=== PATIENT | male | born 1950 | race Caucasian/White ===

== ENCOUNTER 2016-09-20 18:16 | Emergency (ER) | payer OTHER ==
[~2016-09-20] VITALS: Ht 180.3 cm; Wt 129.8 kg
[~2016-09-20 18:16] MED LIST: ATOR20TA PO; BENA25TA8 PO; CALC750C PO; EPIP0.3I IM; FENO1TAB76 PO; MEDR4PAK3 PO; METO25 PO; MULT1TAB46 PO; OMEP10CA37 PO; ST JTAB PO; STINGING NETTLE PO; SYNT200T PO; VITA500015 PO; [UNRECOGNIZED DRUG - CODE] SL
[2016-09-20 18:22] VITALS: BP 137/81; PULSE 44; RESP 20; TEMP 98.3; O2SAT 96
[2016-09-20] MEDS ORDERED: SODIUM CHLORIDE 0.9% FLUSH 5 ML FLUSH IVF PRN (18:45)
[2016-09-20] MEDS ORDERED: EPIN1INJ17 SQ (18:47)
[2016-09-20] MEDS ORDERED: MULTTAB67 PO (18:47)
[2016-09-20] MEDS ORDERED: ATOR20TA15 PO (18:47)
[2016-09-20] MEDS ORDERED: CALC1TAB12 PO (18:47)
[2016-09-20] MEDS ORDERED: BENA25TA3 PO (18:47)
[2016-09-20] MEDS ORDERED: VITA500030 CHEW (18:47)
[2016-09-20] MEDS ORDERED: [UNRECOGNIZED DRUG - CODE] SL (18:47)
[2016-09-20] MEDS ORDERED: LEVO.2 PO (18:47)
--- NOTE | 2016-09-20 18:49 | PD ---
HPI . Irregular heartbeat Chief Complaint: General Weakness Time Seen by Provider: 18:31 Travel History International Travel<30 days: No Contact w/Intl Traveler<30days: No Traveled to known affect area: No History of Present Illness HPI Patient presents stating that he feels like something has been racing in his chest since yesterday. His has been monitoring his heart rate and blood pressure at home and has found his heart rate to be in the 40s and his systolic blood pressure to be in the 80s to 90s. This is very unusual for this patient. She states that she has checked his vital signs today and they have been more normal but he has continued to have the sensation of something racing in his chest. They therefore presented for further evaluation. He denies any other associated symptoms. No chest pain, no shortness of breath, no nausea, no diaphoresis. He has had a previous thyroidectomy and states that his thyroid function was checked just a couple of weeks ago. He denies any previous similar history. PFSH Past Medical History Cardiac Catheterization: Yes (15 yrs ago - clear) Cardiovascular Problems: Yes High Cholesterol: Yes Endocrine: Yes GERD: Yes Immunizations Current: Yes Thyroid Disease: Yes Past Surgical History Cholecystectomy: Yes Endocrine Surgery: Yes (THYROIDECTOMY) Tonsillectomy: Yes Social History Alcohol Use: Yes (VERY RARE) Tobacco Use: No (NEVER) Substance Use: No Allergies-Medications (Allergen,Severity, Reaction): Coded Allergies: Shellfish (Verified Allergy, Severe, swelling and rash, 09/20/16) Vitamin E (Verified Allergy, Intermediate, LIP SWELLING, 09/20/16) Darvon (Verified Allergy, Unknown, 09/20/16) Iodine (Verified Allergy, Unknown, 09/20/16) Reported Meds & Prescriptions Reported Meds & Active Scripts Active Reported Vitamin D3 (Cholecalciferol) 5,000 Unit Chew 5,000 Units CHEW DAILY Vitamin B-12 (Cyanocobalamin) 6,000 Mcg Subl 6,000 Mcg SL Calcium 500 +D (Calcium Carbonate-Cholecalciferol) 500-400 Mg-Unit Tab 1 Tab PO DAILY Synthroid (Levothyroxine Sodium) 200 Mcg Tab 224 Mcg PO DAILY Atorvastatin (Atorvastatin Calcium) 20 Mg Tab 20 Mg PO HS Multiple Vitamin 1 Tab 1 Tab PO DAILY Epinephrine Inj (Epinephrine) 0.3 Mg/0.3 Ml Pfpen 0.3 Mg SQ ONCE PRN Benadryl Allergy (Diphenhydramine HCl) 25 Mg Tab 25 Mg PO Q6H PRN [Stinging Nettle] 450 Mg PO DAILY Review of Systems Except as stated in HPI: all other systems reviewed are Neg HENT: No: Headaches Cardiovascular: Positive: Irregular Rhythm, No: Chest Pain or Discomfort Respiratory: No: Shortness of Breath Gastrointestinal: No: Nausea, Vomiting Physical Exam Narrative GENERAL: Awake and alert and in no acute distress. SKIN: Warm and dry. HEAD: Atraumatic. Normocephalic. EYES: Pupils equal and round. ENT: No nasal bleeding or discharge. Mucous membranes pink and moist. NECK: Trachea midline. Neck supple. CARDIOVASCULAR: He is in a sinus rhythm with multiple PVCs. He is occasionally in a bigeminy rhythm. RESPIRATORY: No accessory muscle use. Lungs are clear with full air movement throughout. GASTROINTESTINAL: Abdomen soft, non-tender, nondistended. MUSCULOSKELETAL: No obvious deformities. No edema. NEUROLOGICAL: Awake and alert. No obvious cranial nerve deficits. Motor grossly within normal limits. Normal speech. PSYCHIATRIC: Appropriate mood and affect; insight and judgment normal. Data Data Last Documented VS Vital Signs Date Time Temp Pulse Resp B/P Pulse Ox O2 Delivery O2 Flow Rate FiO2 09/20/16 20:05 60 18 131/64 94 Room Air 09/20/16 18:22 98.3 Orders Electrocardiogram (09/20/16 18:40) Ckmb (Isoenzyme) Profile (09/20/16 18:40) Complete Blood Count With Diff (09/20/16 18:40) Comprehensive Metabolic Panel (09/20/16 18:40) D-Dimer (09/20/16 18:40) Magnesium (Mg) (09/20/16 18:40) Prothrombin Time / Inr (Pt) (09/20/16 18:40) Act Partial Throm Time (Ptt) (09/20/16 18:40) Troponin I (09/20/16 18:40) Chest, Single Ap (09/20/16 18:40) Ecg Monitoring (09/20/16 18:40) Iv Access Insert/Monitor (09/20/16 18:40) Oximetry (09/20/16 18:40) Sodium Chloride 0.9% Flush (Ns Flush) (09/20/16 18:45) Thyroid Stimulating Hormone (09/20/16 18:40) Free Thyroxine (T4) (09/20/16 18:40) B-Type Natriuretic Peptide (09/20/16 19:32) CKMB (09/20/16 19:05) CKMB% (09/20/16 19:05) Labs Laboratory Tests Test 09/20/16 09/20/16 19:05 19:55 White Blood Count 6.4 TH/MM3 Red Blood Count 4.58 MIL/MM3 Hemoglobin 14.0 GM/DL Hematocrit 39.8 % Mean Corpuscular Volume 87.0 FL Mean Corpuscular Hemoglobin 30.6 PG Mean Corpuscular Hemoglobin 35.2 % Concent Red Cell Distribution Width 13.1 % Platelet Count 141 TH/MM3 Mean Platelet Volume 9.9 FL Neutrophils (%) (Auto) 55.9 % Lymphocytes (%) (Auto) 33.4 % Monocytes (%) (Auto) 7.2 % Eosinophils (%) (Auto) 2.9 % Basophils (%) (Auto) 0.6 % Neutrophils # (Auto) 3.6 TH/MM3 Lymphocytes # (Auto) 2.1 TH/MM3 Monocytes # (Auto) 0.5 TH/MM3 Eosinophils # (Auto) 0.2 TH/MM3 Basophils # (Auto) 0.0 TH/MM3 CBC Comment DIFF FINAL Differential Comment Prothrombin Time 11.6 SEC Prothromb Time International 1.0 RATIO Ratio Activated Partial 25.6 SEC Thromboplast Time D-Dimer Quantitative (PE/DVT) 0.25 MG/L FEU Sodium Level 143 MEQ/L Potassium Level 3.6 MEQ/L Chloride Level 108 MEQ/L Carbon Dioxide Level 24.9 MEQ/L Anion Gap 10 MEQ/L Blood Urea Nitrogen 12 MG/DL Creatinine 1.00 MG/DL Estimat Glomerular Filtration 75 ML/MIN Rate Random Glucose 148 MG/DL Calcium Level 8.2 MG/DL Magnesium Level 1.8 MG/DL Total Bilirubin 1.9 MG/DL Aspartate Amino Transf 17 U/L (AST/SGOT) Alanine Aminotransferase 30 U/L (ALT/SGPT) Alkaline Phosphatase 75 U/L Total Creatine Kinase 253 U/L Creatine Kinase MB 2.8 NG/ML Troponin I LESS THAN 0.02 NG/ML Total Protein 6.3 GM/DL Albumin 3.5 GM/DL Thyroid Stimulating Hormone 0.256 uIU/ML 3rd Gen B-Type Natriuretic Peptide 257 PG/ML [facility] Medical Decision Making Medical Screen Exam Complete: Yes Emergency Medical Condition: Yes Medical Record Reviewed: Yes (medical history is significant for hyperlipidemia , thyroidectomy, cholecystectomy. He had a normal cardiac catheterization in March 2016.) Interpretation(s) EKG shows a sinus rhythm with frequent PVCs. He is in a bigeminy rhythm on this EKG. No ST segment elevation or depression. Differential Diagnosis Differential diagnosis of palpitations includes but is not limited to anxiety, SVT, aVF with RVR, VT, sinus tachycardia Narrative Course Patient presents for the evaluation of a rushing sensation in his chest. He does have a bigeminy rhythm. Last Impressions Chest X-Ray 09/20/16 1840 Signed Impressions: Service Date/Time: Tuesday, September 20, 2016 18:52 - CONCLUSION: Cardiomegaly and slight interstitial prominence. Trenton Lee MD The chest x-ray was independently reviewed by me. I have added a BNP to his lab workup. CBC & BMP Diagram 09/20/16 19:05 D-dimer is normal. Cardiac enzymes are negative. TSH is low at 0.256. BNP is 257. The patient has continued to have multiple PVCs. They had been unifocal here. He has often been in bigeminy. The patient does not desire admission. He would prefer to follow up with his body bumper as an outpatient. I think that that is probably a reasonable decision. Diagnosis Primary Impression: Bigeminy Referrals: Doe Vee MD call for appointment Patient Instructions: General Instructions, Premature Ventricular Contractions (ED) Disposition: 01 DISCHARGE HOME Condition: Stable Funmilayo Israel MD Sep 20, 2016 18:49
--- NOTE | 2016-09-20 19:00 | RADHPO ---
EXAM DATE/TIME: 09/20/2016 18:52 [facility] COMPARISON: CHEST SINGLE AP, April 11, 2016, 13:56. INDICATIONS : Palpitations MEDICAL HISTORY : None. SURGICAL HISTORY : None. ENCOUNTER: Initial ACUITY: 2 days PAIN SCORE: 0/10 LOCATION: Bilateral chest FINDINGS: A single view of the chest demonstrates the lungs to be symmetrically aerated without evidence of mas s, infiltrate or effusion. Cardiomegaly and tortuous thoracic aorta. Slight interstitial prominence. No pulmonary edema. The cardiomediastinal contours are unremarkable. Osseous structures are intact. CONCLUSION: Cardiomegaly and slight interstitial prominence. Trenton Lee MD on September 20, 2016 at 18:58 Board Certified Radiologist. This report was verified electronically.
[2016-09-20 19:05] VITALS: BP 135/72; PULSE 66; RESP 18; O2SAT 95
[2016-09-20 19:37] LABS: AUTOMATED NEUTROPHIL # 3.6 TH/MM3 (1.8-7.7); BASOPHIL % 0.6 % (0.0-2.0); EOSINOPHIL # 0.2 TH/MM3 (0-0.4); EOSINOPHIL % 2.9 % (0.0-4.0); HEMATOCRIT 39.8 % (39.0-51.0); HEMO FLAGS DIFF FINAL; LYMPH % 33.4 % (9.0-44.0); LYMPHOCYTE # 2.1 TH/MM3 (1.0-4.8); MEAN CORPUSCULAR HEMOGLOBIN 30.6 PG (27.0-34.0); MEAN CORPUSCULAR HGB CONC 35.2 % (32.0-36.0); MONO % 7.2 % (0.0-8.0); NEUT % 55.9 % (16.0-70.0); PLATELET COUNT 141 TH/MM3 (150-450); RED BLOOD COUNT 4.58 MIL/MM3 (4.50-5.90); RED CELL DISTRIBUTION WIDTH 13.1 % (11.6-17.2); WHITE BLOOD COUNT 6.4 TH/MM3 (4.0-11.0)
[2016-09-20 19:50] LABS: CHLORIDE 108 MEQ/L (98-107); POTASSIUM 3.6 MEQ/L (3.5-5.1); SODIUM (NA) 143 MEQ/L (136-145)
[2016-09-20 19:54] LABS: ANION GAP 10 MEQ/L (5-15); BICARBONATE 24.9 MEQ/L (21.0-32.0); BLOOD UREA NITROGEN 12 MG/DL (7-18); MAGNESIUM 1.8 MG/DL (1.5-2.5)
[2016-09-20 19:57] LABS: ALT (GPT) 30 U/L (12-78); AST (GOT) 17 U/L (15-37); GLOMERULAR FILTRATION RATE 75 ML/MIN (>89)
[2016-09-20 19:59] LABS: TOTAL BILIRUBIN ADULT 1.9 MG/DL (0.2-1.0)
[2016-09-20 20:00] LABS: ALKALINE PHOSPHATASE 75 U/L (45-117); CREATINE KINASE 253 U/L (39-308)
[2016-09-20 20:05] VITALS: BP 131/64; PULSE 60; RESP 18; O2SAT 94
[2016-09-20 20:12] LABS: CKMB 2.8 NG/ML (0.5-3.6)
[2016-09-20 20:19] LABS: APTT (PATIENT) 25.6 SEC (24.3-30.1); PROTHROMBIN TIME - PATIENT 11.6 SEC (9.8-11.6)
[2016-09-20 21:05] VITALS: BP 136/69; PULSE 66; RESP 18; O2SAT 96
[2016-09-20 21:31] LABS: FREE T4 1.06 NG/DL (0.76-1.46)
--- NOTE | 2016-09-21 12:21 | EKG ---
Date Performed: 09/20/2016 Time Performed: 18:45:36 PTAGE: 66 years EKG: Sinus rhythm with bigeminal PVCs Leftward axis Inferior/lateral ST-T changes are nonspecific Compared to the prev ious tracing frequent PVCs and nonspecific T wave changes are now present Abnormal ECG PREVIOUS TRACING : 04/11/2016 19.52 DOCTOR: Von Barrett Interpretating Date/Time 09/21/2016 12:19:53
== END 2016-09-20 21:34 | disposition home or self-care (01) ==
LOC: PHED 18:16
DX: R00.8 Other abnormalities of heart beat (principal); I49.3 Ventricular premature depolarization
CPT/HCPCS: 71010; 80053; 82550; 82552; 83735; 83880; 84439; 84443; 84484; 85025; 85379; 85610; 85730; 93005

== ENCOUNTER 2016-09-23 21:30 | Emergency (ER) | payer OTHER ==
[~2016-09-23] VITALS: Ht 154.9 cm; Wt 128.0 kg
[~2016-09-23 21:30] MED LIST changes: -ATOR20TA PO; +ATOR20TA15 PO; +BENA25TA3 PO; -BENA25TA8 PO; +CALC1TAB12 PO; -CALC750C PO; +EPIN1INJ17 SQ; -EPIP0.3I IM; -FENO1TAB76 PO; +LEVO.2 PO; -MEDR4PAK3 PO; -METO25 PO; -MULT1TAB46 PO; +MULTTAB67 PO; -OMEP10CA37 PO; -ST JTAB PO; -SYNT200T PO; -VITA500015 PO; +VITA500030 CHEW
[2016-09-23 21:54] VITALS: BP 122/75; PULSE 85; RESP 18; TEMP 98.8; O2SAT 95
[2016-09-23] MEDS ORDERED: SODIUM CHLOR 0.9% 1000 ML INJ 1,000 ML IV SCH (22:06)
--- NOTE | 2016-09-23 22:12 | PD ---
HPI Chief Complaint: Flank/Kidney Pain Time Seen by Provider: 22:00 Travel History International Travel<30 days: No Contact w/Intl Traveler<30days: No Traveled to known affect area: No History of Present Illness HPI The patient is a 66-year-old male who presents to the emergency department for left flank pain of 5 hours duration. The patient has complained of pain located over the left lateral aspect of the abdomen for last 5 hours. The patient denies any nausea, vomiting, or change in bowel habits. The patient does have a history of daily diarrhea, denies any recent constipation. The patient denies any hematuria, dysuria, frequency, or urgency. The patient states he is currently being worked up for cardiac-related issues, but denies any acute chest pain or shortness of breath. The patient does have a history of diverticulitis, however, denies any history of nephrolithiasis. The patient does note a previous history of laparoscopic cholecystectomy. The patient's primary physician is Dr. Vallecillo. The patient denies any fever, chills, or sweats. PFSH Past Medical History Cardiac Catheterization: Yes (15 yrs ago - clear) Cardiovascular Problems: Yes High Cholesterol: Yes Endocrine: Yes Gastrointestinal Disorders: Yes (barretts esophagus) GERD: Yes Immunizations Current: Yes Thyroid Disease: Yes Past Surgical History Cholecystectomy: Yes Endocrine Surgery: Yes (THYROIDECTOMY) Tonsillectomy: Yes Other Surgery: Yes (thyroidectomy ) Social History Alcohol Use: Yes (VERY RARE) Tobacco Use: No (NEVER) Substance Use: No Allergies-Medications (Allergen,Severity, Reaction): Coded Allergies: Shellfish (Verified Allergy, Severe, swelling and rash, 09/23/16) Vitamin E (Verified Allergy, Intermediate, LIP SWELLING, 09/23/16) Darvon (Verified Allergy, Unknown, 09/23/16) Iodine (Verified Allergy, Unknown, 09/23/16) Reported Meds & Prescriptions Reported Meds & Active Scripts Active Hutto (Hydrocodone-Acetaminophen) 5-325 mg Tab 1 Tab PO Q6H PRN Flagyl (Metronidazole) 500 Mg Tab 500 Mg PO BID 7 Days Cipro (Ciprofloxacin HCl) 500 Mg Tab 500 Mg PO BID 7 Days Reported Vitamin D3 (Cholecalciferol) 5,000 Unit Chew 5,000 Units CHEW DAILY Vitamin B-12 (Cyanocobalamin) 6,000 Mcg Subl 6,000 Mcg SL Calcium 500 +D (Calcium Carbonate-Cholecalciferol) 500-400 Mg-Unit Tab 1 Tab PO DAILY Synthroid (Levothyroxine Sodium) 200 Mcg Tab 224 Mcg PO DAILY Atorvastatin (Atorvastatin Calcium) 20 Mg Tab 20 Mg PO HS Multiple Vitamin 1 Tab 1 Tab PO DAILY Epinephrine Inj (Epinephrine) 0.3 Mg/0.3 Ml Pfpen 0.3 Mg SQ ONCE PRN Benadryl Allergy (Diphenhydramine HCl) 25 Mg Tab 25 Mg PO Q6H PRN [Stinging Nettle] 450 Mg PO DAILY Review of Systems Except as stated in HPI: all other systems reviewed are Neg General / Constitutional: No: Fever Cardiovascular: No: Chest Pain or Discomfort Respiratory: No: Shortness of Breath Gastrointestinal: Positive: Diarrhea (chronic, daily diarrhea for years, no changes), Abdominal Pain, No: Nausea, Vomiting, Constipation, Changes in Bowel Habits, Loss of Appetite Genitourinary: No: Urgency, Frequency, Dysuria, Hematuria Musculoskeletal: No: Myalgias, Arthralgias Physical Exam Narrative GENERAL: Awake, alert, pleasant 66-year-old male who appears his stated age and is in no acute respiratory distress. SKIN: Warm and dry. HEAD: Atraumatic. Normocephalic. EYES: No scleral icterus. No injection or drainage. ENT: No nasal bleeding or discharge. Mucous membranes pink and moist. NECK: Trachea midline. No JVD. Well-healed transverse surgical scar. CARDIOVASCULAR: Regular rate and rhythm. No murmur appreciated. RESPIRATORY: No accessory muscle use. Clear to auscultation. Breath sounds equal bilaterally. GASTROINTESTINAL: Abdomen soft, obese, well-healed laparoscopic scars. Tenderness in the mid left abdomen. No rebound tenderness, guarding, or rigidity. Back: No CVA tenderness. MUSCULOSKELETAL: No obvious deformities. No clubbing. No cyanosis. No edema. NEUROLOGICAL: Awake and alert. No obvious cranial nerve deficits. Motor grossly within normal limits. Normal speech. PSYCHIATRIC: Appropriate mood and affect; insight and judgment normal. Data Data Last Documented VS Vital Signs Date Time Temp Pulse Resp B/P Pulse Ox O2 Delivery O2 Flow Rate FiO2 09/23/16 21:54 98.8 85 18 122/75 95 Orders Complete Blood Count With Diff (09/23/16 22:06) Comprehensive Metabolic Panel (09/23/16 22:06) Lipase (09/23/16 22:06) Urinalysis - C+S If Indicated (09/23/16 22:06) Ct Abd/Pel W/O Iv Contrast (09/23/16 22:06) Iv Access Insert/Monitor (09/23/16 22:06) Ecg Monitoring (09/23/16 22:06) Oximetry (09/23/16 22:06) Sodium Chlor 0.9% 1000 Ml Inj (Ns 1000 M (09/23/16 22:06) Sodium Chloride 0.9% Flush (Ns Flush) (09/23/16 22:15) Metronidazole 500 Mg Inj (Flagyl 500 Mg (09/23/16 23:00) Ciprofloxacin (Cipro) (09/23/16 23:00) Labs Laboratory Tests Test 09/23/16 09/23/16 22:00 22:25 Urine Color YELLOW Urine Turbidity CLEAR Urine pH 6.0 Urine Specific Bart[place] 1.012 Urine Protein NEG mg/dL Urine Glucose (UA) NEG mg/dL Urine Ketones NEG mg/dL Urine Occult Blood NEG Urine Nitrite NEG Urine Bilirubin NEG Urine Leukocyte Esterase NEG Urine RBC 0-2 /hpf Urine WBC 0-2 /hpf Urine Squamous Epithelial 0-5 /hpf Cells Urine Bacteria NONE /hpf Microscopic Urinalysis Comment CULT NOT INDICATED White Blood Count 9.8 TH/MM3 Red Blood Count 4.70 MIL/MM3 Hemoglobin 13.9 GM/DL Hematocrit 40.6 % Mean Corpuscular Volume 86.4 FL Mean Corpuscular Hemoglobin 29.7 PG Mean Corpuscular Hemoglobin 34.3 % Concent Red Cell Distribution Width 13.4 % Platelet Count 150 TH/MM3 Mean Platelet Volume 9.8 FL Neutrophils (%) (Auto) 67.3 % Lymphocytes (%) (Auto) 23.2 % Monocytes (%) (Auto) 7.0 % Eosinophils (%) (Auto) 1.8 % Basophils (%) (Auto) 0.7 % Neutrophils # (Auto) 6.4 TH/MM3 Lymphocytes # (Auto) 2.3 TH/MM3 Monocytes # (Auto) 0.7 TH/MM3 Eosinophils # (Auto) 0.2 TH/MM3 Basophils # (Auto) 0.1 TH/MM3 CBC Comment DIFF FINAL Differential Comment Sodium Level 142 MEQ/L Potassium Level 3.8 MEQ/L Chloride Level 106 MEQ/L Carbon Dioxide Level 24.7 MEQ/L Anion Gap 11 MEQ/L Blood Urea Nitrogen 13 MG/DL Creatinine 0.95 MG/DL Estimat Glomerular Filtration 80 ML/MIN Rate Random Glucose 89 MG/DL Calcium Level 8.5 MG/DL Aspartate Amino Transf 20 U/L (AST/SGOT) Alanine Aminotransferase 28 U/L (ALT/SGPT) Albumin 3.7 GM/DL Lipase 121 U/L MDM Medical Decision Making Medical Screen Exam Complete: Yes Emergency Medical Condition: Yes Medical Record Reviewed: Yes Interpretation(s) Last Impressions Abdomen/Pelvis CT 09/23/162205 Signed Impressions: Service Date/Time: Friday, September 23, 2016 22:13 - CONCLUSION: Acute diverticulitis in the distal descending colon. No evidence of extraintestinal abscess or significant ileus. Otherwise unremarkable evaluation of the abdomen. Status post cholecystectomy. Louie Bowens MD Laboratory Tests Test 09/23/16 09/23/16 22:00 22:25 Urine Color YELLOW Urine Turbidity CLEAR Urine pH 6.0 Urine Specific Bartley 1.012 Urine Protein NEG mg/dL Urine Glucose (UA) NEG mg/dL Urine Ketones NEG mg/dL Urine Occult Blood NEG Urine Nitrite NEG Urine Bilirubin NEG Urine Leukocyte Esterase NEG Urine RBC 0-2 /hpf Urine WBC 0-2 /hpf Urine Squamous Epithelial 0-5 /hpf Cells Urine Bacteria NONE /hpf Microscopic Urinalysis Comment CULT NOT INDICATED White Blood Count 9.8 TH/MM3 Red Blood Count 4.70 MIL/MM3 Hemoglobin 13.9 GM/DL Hematocrit 40.6 % Mean Corpuscular Volume 86.4 FL Mean Corpuscular Hemoglobin 29.7 PG Mean Corpuscular Hemoglobin 34.3 % Concent Red Cell Distribution Width 13.4 % Platelet Count 150 TH/MM3 Mean Platelet Volume 9.8 FL Neutrophils (%) (Auto) 67.3 % Lymphocytes (%) (Auto) 23.2 % Monocytes (%) (Auto) 7.0 % Eosinophils (%) (Auto) 1.8 % Basophils (%) (Auto) 0.7 % Neutrophils # (Auto) 6.4 TH/MM3 Lymphocytes # (Auto) 2.3 TH/MM3 Monocytes # (Auto) 0.7 TH/MM3 Eosinophils # (Auto) 0.2 TH/MM3 Basophils # (Auto) 0.1 TH/MM3 CBC Comment DIFF FINAL Differential Comment Sodium Level 142 MEQ/L Potassium Level 3.8 MEQ/L Chloride Level 106 MEQ/L Carbon Dioxide Level 24.7 MEQ/L Anion Gap 11 MEQ/L Blood Urea Nitrogen 13 MG/DL Creatinine 0.95 MG/DL Estimat Glomerular Filtration 80 ML/MIN Rate Random Glucose 89 MG/DL Calcium Level 8.5 MG/DL Aspartate Amino Transf 20 U/L (AST/SGOT) Alanine Aminotransferase 28 U/L (ALT/SGPT) Albumin 3.7 GM/DL Lipase 121 U/L Differential Diagnosis Differential diagnosis includes diverticulitis, colitis, nephrolithiasis, hydronephrosis, pyelonephritis, lower lobe pneumonia, pancreatitis, partial small bowel obstruction. Narrative Course IV was established, labs were drawn and sent, and the patient was placed on cardiac telemetry monitoring and continuous pulse oximetry monitoring. The patient declined pain medications. UA was sent to lab. Noncontrast CT of the abdomen and pelvis was ordered to evaluate for diverticulitis. The patient's white count is unremarkable. UA is negative. CT of the abdomen and pelvis is positive for acute diverticulitis in the distal descending colon, consistent with the location of the patient's pain. The patient was administered Flagyl intravenously and Cipro orally. The patient will be discharged home on Cipro, Flagyl, and pain medications. The patient is advised to follow-up with his primary physician. The patient will be provided a copy of his labs and CT results at discharge. Diagnosis Primary Impression: Acute diverticulitis Patient Instructions: General Instructions Additional Instructions: Please provide the patient a copy of his labs and CT results at discharge. Follow-up with your primary physician. Return if symptoms worsen or progress. Medications as directed. Med/Other Pt SpecificInfo: Prescription(s) given Scripts Hydrocodone-Acetaminophen (Hutto)5-325 mg Tab1 Tab PO Q6H PRN (PAIN) #20 TAB Ref 0 Prov:Hiram Angel MD 09/23/16 Metronidazole (Flagyl)500 Mg [id number] Mg PO BID 7 Days Ref 0 Prov:Hiram Angel MD 09/23/16 Ciprofloxacin (Cipro)500 Mg [id number] Mg PO BID 7 Days Ref 0 Prov:Hiram Angel MD 09/23/16 Disposition: DISCHARGE HOME Condition: Stable Hiram Angel MD Sep 23, 2016 22:12
[2016-09-23] MEDS ORDERED: SODIUM CHLORIDE 0.9% FLUSH 5 ML FLUSH IVF PRN (22:15)
[2016-09-23 22:19] LABS: BLOOD, URINE NEG (NEG); GLUCOSE,URINE NEG (NEG); KETONE, URINE NEG (NEG); NITRITE,URINE NEG (NEG)
[2016-09-23 22:25] LABS: RBC, URINE 0-2 /hpf (0-3); SQUAMOUS EPITHELIAL CELL URINE 0-5 /hpf (0-5); URINE COLOR YELLOW (YELLW/STRAW); WBC, URINE 0-2 /hpf (0-5)
[2016-09-23 22:26] LABS: COMMENT (UR) CULT NOT INDICATED; CULTURE IF INDICATED CULT NOT INDICATED
[2016-09-23 22:44] LABS: AUTOMATED NEUTROPHIL # 6.4 TH/MM3 (1.8-7.7); BASOPHIL # 0.1 TH/MM3 (0-0.2); BASOPHIL % 0.7 % (0.0-2.0); EOSINOPHIL # 0.2 TH/MM3 (0-0.4); EOSINOPHIL % 1.8 % (0.0-4.0); HEMATOCRIT 40.6 % (39.0-51.0); HEMO FLAGS DIFF FINAL; LYMPH % 23.2 % (9.0-44.0); LYMPHOCYTE # 2.3 TH/MM3 (1.0-4.8); MEAN CELL VOLUME 86.4 FL (80.0-100.0); MEAN CORPUSCULAR HEMOGLOBIN 29.7 PG (27.0-34.0); MEAN CORPUSCULAR HGB CONC 34.3 % (32.0-36.0); NEUT % 67.3 % (16.0-70.0); PLATELET COUNT 150 TH/MM3 (150-450); RED CELL DISTRIBUTION WIDTH 13.4 % (11.6-17.2); WHITE BLOOD COUNT 9.8 TH/MM3 (4.0-11.0)
--- NOTE | 2016-09-23 22:50 | RADHPO ---
EXAM DATE/TIME: 09/23/2016 22:13 [facility] COMPARISON: No previous studies available for comparison. INDICATIONS : Left lower quadrant pain today. ORAL CONTRAST: No oral contrast ingested. RADIATION DOSE: 24.81 CTDIvol (mGy) MEDICAL HISTORY : Gastroesophageal reflux disease. Cardiovascular disease Diverticulitis. SURGICAL HISTORY : Cholecystectomy. ENCOUNTER: Initial ACUITY: 1 day PAIN SCALE: 5/10 LOCATION: Left lower quadrant abdomen TECHNIQUE: Volumetric scanning of the abdomen and pelvis was performed. Using automated exposure control and ad justment of the mA and/or kV according to patient size, radiation dose was kept as low as reasonably achievable to obtain optimal diagnostic quality images. FINDINGS: LOWER LUNGS: The visualized lower lungs are clear. LIVER: Homogeneous density without lesion. There is no dilation of the biliary tree. Post cholecystectomy c lips are noted. SPLEEN: Normal size without lesion. PANCREAS: Within normal limits. KIDNEYS: Normal in size and shape. There is no mass, stone, or hydronephrosis. ADRENAL GLANDS: Within normal limits. VASCULAR: There is no aortic aneurysm. BOWEL/MESENTERY: Multiple diverticular scattered throughout the colon. Pericolonic infiltration is identified along th e distal descending colon. There are no abnormal fluid collections. Intestinal tract is otherwise unr emarkable. ABDOMINAL WALL: Within normal limits. RETROPERITONEUM: There is no lymphadenopathy. BLADDER: No wall thickening or mass. REPRODUCTIVE: Within normal limits. INGUINAL: There is no lymphadenopathy or hernia. MUSCULOSKELETAL: Within normal limits for patient age. CONCLUSION: Acute diverticulitis in the distal descending colon. No evidence of extraintestinal abscess or significant ileus. Otherwise unremarkable evaluation of the abdomen. Status post cholecystectomy. Louie Bowens MD on September 23, 2016 at 22:45 Board Certified Radiologist. This report was verified electronically.
[2016-09-23 22:52] LABS: CHLORIDE 106 MEQ/L (98-107); POTASSIUM 3.8 MEQ/L (3.5-5.1); SODIUM (NA) 142 MEQ/L (136-145)
[2016-09-23 22:56] LABS: ANION GAP 11 MEQ/L (5-15); BICARBONATE 24.7 MEQ/L (21.0-32.0); BLOOD UREA NITROGEN 13 MG/DL (7-18)
[2016-09-23 22:58] LABS: ALT (GPT) 28 U/L (12-78); AST (GOT) 20 U/L (15-37)
[2016-09-23] MEDS ORDERED: NORC5TAB PO (22:58)
[2016-09-23] MEDS ORDERED: METR-1 PO (22:58)
[2016-09-23] MEDS ORDERED: CIPR-9 PO (22:58)
[2016-09-23 22:59] LABS: GLOMERULAR FILTRATION RATE 80 ML/MIN (>89)
[2016-09-23 23:00] LABS: TOTAL BILIRUBIN ADULT 2.7 MG/DL (0.2-1.0)
[2016-09-23] MEDS ORDERED: CIPROFLOXACIN 500 MG TAB PO ONE (23:00)
[2016-09-23] MEDS ORDERED: metroNIDAZOLE 500 MG INJ 100 ML IV ONE (23:00)
[2016-09-23 23:01] LABS: ALKALINE PHOSPHATASE 74 U/L (45-117)
[2016-09-24 00:03] VITALS: BP 131/86; PULSE 82; O2SAT 95
== END 2016-09-24 00:24 | disposition home or self-care (01) ==
LOC: PHED 21:30
DX: K57.32 Diverticulitis of large intestine without perforation or abscess without bleeding (principal); E07.9 Disorder of thyroid, unspecified; E78.00 Pure hypercholesterolemia, unspecified; Z86.79 Personal history of other diseases of the circulatory system; Z87.19 Personal history of other diseases of the digestive system
CPT/HCPCS: 74176; 80053; 81001; 83690; 85025; 96361; 96365; 99284; J7030

== ENCOUNTER 2017-03-05 15:52 | Emergency (ER) | payer MEDICARE, OTHER ==
[~2017-03-05 15:52] MED LIST changes: +CIPR-9 PO; +METR-1 PO; +NORC5TAB PO
[2017-03-05 16:03] VITALS: BP 152/85; PULSE 90; RESP 20; TEMP 98; O2SAT 95
[2017-03-05] MEDS ORDERED: PRIL20TA2 (16:08)
[2017-03-05] MEDS ORDERED: methylPREDNISolone SOD SUCC 125 MG/2 ML VIAL IV PUSH ONE (16:15)
[2017-03-05] MEDS ORDERED: FAMOTIDINE 20 MG/2 ML VIAL IV PUSH ONE (16:15)
--- NOTE | 2017-03-05 16:28 | PD ---
HPI Chief Complaint: Allergic/Adverse Reaction Time Seen by Provider: 16:02 Travel History International Travel<30 days: No Contact w/Intl Traveler<30days: No Traveled to known affect area: No History of Present Illness HPI This is a 66-year-old male who presents to the emergency department with an allergic reaction. He is allergic to shrimp. He was eating at the [employer] he started to feel scratchiness in his throat, constant, moderate severity, progressing to some scratchiness on his face. He denies any wheezing or trouble breathing. He denies any rash. He denies any vomiting, diarrhea or abdominal pain. He doesn't feel lightheaded or dizzy. He took 15 mL of children's Benadryl and took 1 tablet of Benadryl at home. He did not take epinephrine. PFSH Past Medical History Arthritis: Yes Cancer: Yes (SKIN ) Cardiac Catheterization: Yes (2015) Cardiovascular Problems: Yes High Cholesterol: Yes Diverticulitis: Yes Endocrine: Yes Gastrointestinal Disorders: Yes (barretts esophagus) GERD: Yes Kidney Stones: Yes Immunizations Current: Yes Pneumonia: Yes Shingles: Yes Thyroid Disease: Yes Past Surgical History Cholecystectomy: Yes Endocrine Surgery: Yes (THYROIDECTOMY) Genitourinary Surgery: Yes (LITHOTRIPSY) Joint Replacement: Yes (BILATERAL KNEES) Tonsillectomy: Yes Other Surgery: Yes (thyroidectomy ) Social History Alcohol Use: No Tobacco Use: No (NEVER) Substance Use: No Allergies-Medications (Allergen,Severity, Reaction): Coded Allergies: Shellfish (Verified Allergy, Severe, swelling and rash, 03/05/17) Vitamin E (Verified Allergy, Intermediate, LIP SWELLING, 03/05/17) Darvon (Verified Allergy, Unknown, 03/05/17) Iodine (Verified Allergy, Unknown, 03/05/17) Reported Meds & Prescriptions Reported Meds & Active Scripts Active Reported Prilosec (Omeprazole Magnesium) 20 Mg Tab Calcium 500 +D (Calcium Carbonate-Cholecalciferol) 500-400 Mg-Unit Tab 1 Tab PO DAILY Synthroid (Levothyroxine Sodium) 200 Mcg Tab 224 Mcg PO DAILY Atorvastatin (Atorvastatin Calcium) 20 Mg Tab 20 Mg PO HS Epinephrine Inj (Epinephrine) 0.3 Mg/0.3 Ml Pfpen 0.3 Mg SQ ONCE PRN Review of Systems Except as stated in HPI: all other systems reviewed are Neg Physical Exam Narrative GENERAL:Well appearing, no acute distress SKIN: Focused skin assessment warm and dry. HEAD: Atraumatic. Normocephalic. EYES: Pupils equal and round. No injection or drainage. ENT: Moist mucous membranes NECK: Trachea midline. CARDIOVASCULAR: Regular rate and rhythm. No murmur appreciated. RESPIRATORY: Clear to auscultation. Breath sounds equal bilaterally. GASTROINTESTINAL: Abdomen soft, non-tender, nondistended. MUSCULOSKELETAL: No obvious deformities. NEUROLOGICAL: Awake and alert. No obvious cranial nerve deficits. Moving all extremities. PSYCHIATRIC: Appropriate mood and affect; insight and judgment normal. Data Data Last Documented VS Vital Signs Date Time Temp Pulse Resp B/P Pulse Ox O2 Delivery O2 Flow Rate FiO2 03/05/17 16:03 98.0 90 20 152/85 95 Orders Methylprednisolone So Succ Inj (Solumedr (03/05/17 16:15) Famotidine Inj (Pepcid Inj) (03/05/17 16:15) [facility] Medical Decision Making Medical Screen Exam Complete: Yes Emergency Medical Condition: Yes Interpretation(s) Afebrile, no tachycardia, hypertensive Differential Diagnosis Acute allergic reaction, anaphylaxis, contact dermatitis, angioedema Narrative Course This is a 66-year-old male who presents to the emergency department with itching in his throat after eating at [employer]. He has a known shellfish allergy. He thinks that his food might of been mixed with shellfish. On arrival he is placed on a monitor and an IV was established. Taken Benadryl prior to coming. He was given Salumedrol, IV fluids and famotidine. He feels much better, his symptoms have resolved and he wants to go home. He'll be discharged with prednisone and Benadryl. Diagnosis Primary Impression: Acute allergic reaction Qualified Code: T78.40XA - Acute allergic reaction, initial encounter Patient Instructions: General Instructions Additional Instructions: If you develop swelling of the throat or coughing a lot, wheezing or trouble breathing, throwing up or having diarrhea, feeling dizzy or passing out, or spreading of your rash return to the emergency room immediately as you may be having a life threatening allergic reaction. Complete your course of steroids and take benadryl every 4 hours for the next 48 hours and then as needed for itching or other symptoms. Med/Other Pt SpecificInfo: Prescription(s) given Scripts Diphenhydramine HCl (Benadryl Allergy)25 Mg Tablet1 Tab PO Q6HR PRN (ITCHING) # 14 Prov:Tricia Hallman MD 03/05/17 Prednisone 20 Mg Tab40 Mg PO DAILY 4 Days Prov:Tricia Hallman MD 03/05/17 Disposition: 01 DISCHARGE HOME Condition: Stable Tricia Hallman MD Mar 05, 2017 16:28
[2017-03-05] MEDS ORDERED: BENA25TA6 PO (18:29)
[2017-03-05] MEDS ORDERED: PRED20 PO (18:29)
[2017-03-06] MEDS ORDERED: MEDR4PAK PO (11:35)
[2017-03-06] MEDS ORDERED: ZANT150T2 PO (11:35)
== END 2017-03-05 18:55 | disposition home or self-care (01) ==
LOC: PHED 15:52
DX: T78.40XA Allergy, unspecified, initial encounter (principal)
CPT/HCPCS: 96374; 96375; 99284; J2930

== ENCOUNTER 2017-03-06 09:09 | Emergency (ER) | payer MEDICARE, OTHER ==
[~2017-03-06] VITALS: Ht 180.3 cm; Wt 132.7 kg
[~2017-03-06 09:09] MED LIST changes: +BENA25TA6 PO; +PRED20 PO; +PRIL20TA2
[2017-03-06 09:11] VITALS: BP 165/82; PULSE 92; RESP 18; TEMP 98.1; O2SAT 96
[2017-03-06] MEDS ORDERED: diphenhydrAMINE HCL 50 MG/ML VIAL IVP ONE (09:45)
[2017-03-06] MEDS ORDERED: SODIUM CHLORIDE 0.9% FLUSH 10 ML FLUSH IV FLUSH PRN (09:45)
[2017-03-06] MEDS ORDERED: FAMOTIDINE 20 MG/2 ML VIAL IV PUSH ONE (09:45)
[2017-03-06] MEDS ORDERED: EPINEPHrine HCL (1:1000) 1 MG/ML VIAL IM ONE (09:45)
[2017-03-06] MEDS ORDERED: methylPREDNISolone SOD SUCC 125 MG/2 ML VIAL IV PUSH ONE (09:45)
--- NOTE | 2017-03-06 09:52 | PD ---
HPI Chief Complaint: Allergic/Adverse Reaction Time Seen by Provider: 09:40 Travel History International Travel<30 days: No Contact w/Intl Traveler<30days: No Traveled to known affect area: No History of Present Illness HPI 66-year-old male with history of shellfish allergies, seen yesterday for allergic reaction to possible shellfish at a restaurant, given prednisone and Benadryl, presents to the ER today because he states that he started feeling itchiness going down his face and into his throat again despite taking Benadryl and prednisone at 8 AM this morning. He states it is still progressing. He denies any shortness of breath, drooling, rash, or any other issues. Modifying Factors: None Associated Signs & Symptoms: Facial itching, redness, throat irritation, allergic reaction Risk Factors: Allergic reaction yesterday to shellfish, took medications at 8 AM PFSH Past Medical History Arthritis: Yes Cancer: Yes (SKIN ) Cardiac Catheterization: Yes (2015) Cardiovascular Problems: Yes High Cholesterol: Yes Diverticulitis: Yes Endocrine: Yes Gastrointestinal Disorders: Yes (barretts esophagus) GERD: Yes Kidney Stones: Yes Immunizations Current: Yes Pneumonia: Yes Shingles: Yes Thyroid Disease: Yes ?: Not Past Surgical History Cholecystectomy: Yes Endocrine Surgery: Yes (THYROIDECTOMY) Genitourinary Surgery: Yes (LITHOTRIPSY) Joint Replacement: Yes (BILATERAL KNEES) Tonsillectomy: Yes Other Surgery: Yes (thyroidectomy ) Social History Alcohol Use: No Tobacco Use: No (NEVER) Substance Use: No Allergies-Medications (Allergen,Severity, Reaction): Coded Allergies: Shellfish (Verified Allergy, Severe, swelling and rash, 03/06/17) Vitamin E (Verified Allergy, Intermediate, LIP SWELLING, 03/06/17) Darvon (Verified Allergy, Unknown, 03/06/17) Iodine (Verified Allergy, Unknown, 03/06/17) Reported Meds & Prescriptions Reported Meds & Active Scripts Active Benadryl Allergy (Diphenhydramine HCl) 25 Mg Tablet 1 Tab PO Q6HR PRN Prednisone 20 Mg Tab 40 Mg PO DAILY 4 Days Reported Prilosec (Omeprazole Magnesium) 20 Mg Tab Calcium 500 +D (Calcium Carbonate-Cholecalciferol) 500-400 Mg-Unit Tab 1 Tab PO DAILY Synthroid (Levothyroxine Sodium) 200 Mcg Tab 112 Mcg PO DAILY Atorvastatin (Atorvastatin Calcium) 20 Mg Tab 20 Mg PO HS Epinephrine Inj (Epinephrine) 0.3 Mg/0.3 Ml Pfpen 0.3 Mg SQ ONCE PRN Review of Systems Except as stated in HPI: all other systems reviewed are Neg Physical Exam Narrative GENERAL: Well-developed elderly white male patient currently in mild distress. Awake and oriented 3. SKIN: Focused skin assessment warm/dry. Facial erythema without obvious induration or urticaria. HEAD: Atraumatic. Normocephalic. EYES: Pupils equal and round. No scleral icterus. No injection or drainage. ENT: Mucosa pink and moist. No erythema or exudates. Mild uvular edema. No uvular, palatal, or tonsillar deviation. Airway patent. NECK: Trachea midline. No JVD. CARDIOVASCULAR: Regular rate and rhythm. No murmur appreciated. RESPIRATORY: No accessory muscle use. Clear to auscultation. Breath sounds equal bilaterally. GASTROINTESTINAL: Abdomen soft, non-tender, nondistended. Hepatic and splenic margins not palpable. MUSCULOSKELETAL: No obvious deformities. No clubbing. No cyanosis. No edema. NEUROLOGICAL: Awake and alert. No obvious cranial nerve deficits. Motor grossly within normal limits. Normal speech. PSYCHIATRIC: Appropriate mood and affect; insight and judgment normal. Data Data Last Documented VS Vital Signs Date Time Temp Pulse Resp B/P Pulse Ox O2 Delivery O2 Flow Rate FiO2 03/06/17 10:40 90 18 122/67 95 03/06/17 09:11 98.1 Orders Ecg Monitoring (03/06/17 09:40) Iv Access Insert/Monitor (03/06/17 09:40) Oximetry (03/06/17 09:40) Diphenhydramine Inj (Benadryl Inj) (03/06/17 09:45) Famotidine Inj (Pepcid Inj) (03/06/17 09:45) Sodium Chloride 0.9% Flush (Ns Flush) (03/06/17 09:45) Epinephrine (1:1000) Inj (Adrenalin (1:1 (03/06/17 09:45) Methylprednisolone So Succ Inj (Solumedr (03/06/17 09:45) MDM Medical Decision Making Medical Screen Exam Complete: Yes Emergency Medical Condition: Yes Medical Record Reviewed: Yes Differential Diagnosis Allergic reaction Narrative Course Patient was given additional Benadryl 25 mg IV, 60 mg of Solu-Medrol, and epinephrine in the ER. He was observed for several hours in the ER and on reevaluation at 11:30 AM, appears to be doing much better. He states that the facial itching has gone away and his throat itching has gone away. He is no longer erythematous. Vital signs are stable in the ER. At this point, I had talked to the patient regarding findings and his suspect that he may need a Medrol Dosepak rather than just 40 mg of prednisone. In addition, he has epinephrine which he carries with him. He appears to be a fairly reliable patient and has dealt with his allergies in the past. My plan would be to release him with additional medication and follow-up to primary care physician. He should return immediately should his allergies continue to progress. In addition, I talked him briefly about observation admission as well should he feel that he would rather go that route. I think that either route should be safe considering that he is fairly reliable. At this point, he states that he would rather try outpatient therapy. The plan was discussed with him and the risks of worsening in condition was discussed with him as well and he should return she feels that he is not comfortable with this plan and he states understanding. Diagnosis Primary Impression: Acute allergic reaction Qualified Code: T78.40XD - Acute allergic reaction, subsequent encounter Med/Other Pt SpecificInfo: Prescription(s) given, Med Stopped (prednisone) Scripts Ranitidine (Zantac)150 Mg [id number] Mg PO BID #14 TAB Ref 0 Prov:Tahira Hardwick MD 03/06/17 Methylprednisolone Dosepak (Medrol Dosepak)4 Mg Dspk4 Mg PO DIRECTED #1 DSPK Ref 0 Per Pharmacist direction Prov:Tahira Hardwick MD 03/06/17 Disposition: 01 DISCHARGE HOME Condition: Stable Tahira Hardwick MD Mar 06, 2017 09:52
[2017-03-06 10:03] VITALS: O2SAT 97
[2017-03-06 10:04] VITALS: BP 134/76; PULSE 85; RESP 20; O2SAT 93
[2017-03-06 10:40] VITALS: BP 122/67; PULSE 90; RESP 18; O2SAT 95
[2017-03-06] MEDS ORDERED: MEDR4PAK PO (11:35)
[2017-03-06] MEDS ORDERED: ZANT150T2 PO (11:35)
[2017-03-06 11:38] VITALS: BP 141/69; PULSE 92; RESP 18; O2SAT 96
== END 2017-03-06 11:52 | disposition home or self-care (01) ==
LOC: PHED 09:09
DX: T78.40XA Allergy, unspecified, initial encounter (principal)
CPT/HCPCS: 96372; 96374; 96375; 99284; J0171; J1200; J2930